=== PATIENT | male | born 1955 | race Hispanic/Latino ===

== ENCOUNTER 2017-07-23 06:49 | Emergency (ER) | payer OTHER, BC ==
[2017-07-23 07:17] VITALS: BMI 29.5
--- NOTE | 2017-07-23 07:22 | ED PDOC ---
Upper Extremity Pain/Injury Time Seen by Provider: 07/23/17 07:05 Chief Complaint (Provider): UPPER EXTREMITY PAIN/INJURY History Per: Patient History/Exam Limitations: no limitations Onset/Duration Of Symptoms: Mins (prior to arrival) Current Symptoms Are (Timing): Still Present Additional Complaint(s): 61 year old male, [employer] employee with medical history of diabetes, who presents to the emergency department with a complaint of left hand laceration and pain status post injuring hand at work prior to arrival. Patient stated he was opening a door with his left hand when it was cut by a metal shard that was sticking out. Patient also reported that wound was bleeding at the time but has currently stopped. PMD: none provided Past Medical History - Medical History PMH: Diabetes - Family History Family History: States: Unknown Family Hx - Immunization History Hx Tetanus Toxoid Vaccination: No Hx Influenza Vaccination: No Hx Pneumococcal Vaccination: No - Allergies Allergies/Adverse Reactions: Allergies Allergy/AdvReac Type Severity Reaction Status Date / Time No Known Allergies Allergy Verified 07/23/17 07:16 Review of Systems ROS Statement: Except As Marked, All Systems Reviewed And Found Negative Musculoskeletal: Positive for: Hand Pain (left hand laceration). Negative for: Other (active bleeding) Physical Exam - Reviewed Nursing Documentation Reviewed: Yes Vital Signs Reviewed: Yes - Physical Exam Appears: Positive for: Well, Non-toxic, No Acute Distress Extremity: Positive for: Normal ROM (adequate flexion and extension of left palmar surface of index finger), Other (partial skin avulsion of left palmar surface of index finger). Negative for: Deformity (or loss of sensation/active bleeding), Swelling (left hand) Medical Decision Making Medical Decision Making: Initial Impression: Partial skin avulsion Initial Plan: * Adacel 0.5ml * Dermabond Scribe Attestation: Documented by Lalitha Bailey, acting as a scribe for Betina Eduardo Jamil MD. Provider Scribe Attestation: All medical record entries made by the Scribe were at my direction and personally dictated by me. I have reviewed the chart and agree that the record accurately reflects my personal performance of the history, physical exam, medical decision making, and the department course for this patient. I have also personally directed, reviewed, and agree with the discharge instructions and disposition. Procedures - Splinting Pre-Made Type: metal - Laceration/Wound Repair Finger Wound's Depth, Shape: flap Wound Explored: clean Betadine Prep?: No Wound Debrided: minimal Wound Repaired With: Skin adhesive Wound Complexity: Simple Disposition - Clinical Impression Clinical Impression: Avulsion of skin of finger - Patient ED Disposition Is Patient to be Admitted: No Doctor Will See Patient In The: Office Counseled Patient/Family Regarding: Diagnosis - Disposition Referrals: Haile Chacon MD [Medical Doctor] - Disposition: Routine/Home Disposition Time: 09:30 Condition: STABLE Additional Instructions: Tdap given 07/23/2017 Instructions: Laceration (ED), Skin Adhesive Care (ED) Forms: [facility] ED School/Work Excuse - POA Present On Arrival: None
== END 2017-07-23 09:41 | disposition home or self-care (01) ==
LOC: H.ER 06:49
DX: S61.201A Unspecified open wound of left index finger without damage to nail, initial encounter (principal); W22.8XXA Striking against or struck by other objects, initial encounter; Y92.238 Other place in hospital as the place of occurrence of the external cause; Y99.0 Civilian activity done for income or pay; E11.9 Type 2 diabetes mellitus without complications